=== PATIENT | male | born 1985 | race African-American/Black ===

== ENCOUNTER 2016-12-21 18:24 | Inpatient (IN) | payer SELFPAY ==
[~2016-12-21] VITALS: Ht 175.3 cm; Wt 256.1 kg
[~2016-12-21 18:24] MED LIST: CUBICIN500 MG/10 IV; Norvasc PO; Percocet 5/325,Endoc PO; Rocephin IV; Zestril,Prinivil PO; oxyCODONE PO
[2016-12-21 21:03] LABS: CHLORIDE 99 mEq/L (99-109); POTASSIUM 4.7 mEq/L (3.7-5.4); SODIUM 136 mEq/L (136-147)
[2016-12-21 21:04] LABS: GLUCOSE 125 mg/dL (70-99)
[2016-12-21 21:06] LABS: ANION GAP 11 MEQ/L (2-14)
[2016-12-21 21:08] LABS: GFR ESTIMATE (CALCULATED) > 59 mL/min/
[2016-12-21 21:09] LABS: UREA NITROGEN (BUN) 21 mg/dL (9-23)
[2016-12-21 21:11] LABS: MEAN PLAT.VOLUME 12.4 uM^3 (9.0-12.4); PLATELET COUNT 172 K/uL (156-360)
[2016-12-21 21:49] LABS: TOTAL BILIRUBIN 0.9 mg/dL (0.0-1.0)
[2016-12-21 21:50] LABS: ALKALINE PHOSPHATASE 59 IU/L (3-129)
[2016-12-21 21:52] LABS: DIRECT BILIRUBIN 0.5 mg/dL (0.0-0.3)
[2016-12-21 22:35] LABS: HEMATOCRIT 41.6 % (38.0-50.0); HEMATOLOGY COMMENT 1 SN; MCH 28.3 PG (29.0-34.0); MCHC 30.5 G/DL (30.0-36.0); MCV 92.9 FL (86-99); PLAT.SUFFICIENCY ADEQUATE; RBC DIS.WIDTH-SD 47.8 % (39-53); RED BLOOD COUNT 4.48 M/uL (4.00-5.50); WHITE BLOOD COUNT 11.6 K/uL (4.1-10.2)
[2016-12-21 23:21] LABS: LIPASE 3 U/L (1.0-51.0); SAMPLE HEMOLYSIS CHECK 0; SAMPLE ICTERIC CHECK 0; SAMPLE LIPEMIA CHECK 0
[2016-12-22] VITALS (9 sets, daily range): BP systolic 90–135; BP diastolic 56–93
[2016-12-22 00:24] LABS: INTER. NORMALIZED RATIO 1.5; PROTHROMBIN TIME 15.2 (9.2-11.2); PTT 34.5 (25-32)
[2016-12-22 03:01] LABS: CARBOXY HGB 2.5 % (0-5); METHEMOGLOBIN 1.3 % (0-1.5); PCO2 80 mm Hg (35-45); PO2 85 mm Hg (80-100); pH 7.21 (7.35-7.45)
[2016-12-22 03:02] LABS: COMMENTS - BLOOD GASES A+C+; DEVICE NC; O2 FLOW 3 L/MIN; SITE RR; TOTAL RESP RATE 30 resp/min
[2016-12-22 07:21] LABS: HEMATOCRIT 39.1 % (38.0-50.0); MCH 28.4 PG (29.0-34.0); MCHC 29.7 G/DL (30.0-36.0); MCV 95.8 FL (86-99); MEAN PLAT.VOLUME 12.7 uM^3 (9.0-12.4); PLATELET COUNT 162 K/uL (156-360); RBC DIS.WIDTH-CV 14.4 % (11.8-14.6); RBC DIS.WIDTH-SD 50.4 % (39-53); RED BLOOD COUNT 4.08 M/uL (4.00-5.50); WHITE BLOOD COUNT 14.2 K/uL (4.1-10.2)
[2016-12-22 09:26] LABS: AMPHETAMINES QUANT VALUE 0 NG/ML; BARBITUATES QUANT VALUE 0 NG/ML; BENZODIAZEPINES QUANT VALUE 0 NG/ML; BENZODIAZEPINES, URINE SCREEN Negative (200 ng/mL); MARIJUANA QUANT VALUE 0 NG/ML; PHENCYCLIDINE QUANT VALUE 0 NG/ML
[2016-12-22 10:40] LABS: ADD MIUA? YES; BILIRUBIN NEGATIVE; BLOOD NEGATIVE; COLOR YELLOW ((YELLOW)); GLUCOSE (STRIP) NEGATIVE; KETONES NEGATIVE; LEUKOCYTES NEGATIVE; NITRITE NEGATIVE; PROTEIN (STRIP) NEGATIVE; SPECIFIC GRAVITY 1.016 (1.000-1.030)
[2016-12-22 10:49] LABS: BACTERIA RARE /HPF; EPITHELIAL CELLS RARE /HPF; MUCUS TRACE /LPF; RED BLOOD CELLS 0-5 /HPF (0-5); UCUL ADDED? NO; WHITE BLOOD CELLS 0-5 /HPF (0-5)
[2016-12-22 11:14] LABS: METH RESISTANT S AUREUS PCR NEGATIVE (NEGATIVE)
[2016-12-22 11:15] LABS: PROBE CHECK PASS; SPECIMEN PROCESSING CONTROL PASS
[2016-12-22 16:01] LABS: ANION GAP 5 MEQ/L (2-14); CHLORIDE 101 MEQ/L (99-109); GFR ESTIMATE (CALCULATED) 50 mL/min/; GLUCOSE 116 mg/dL (70-99); POTASSIUM 4.4 MEQ/L (3.7-5.4); SAMPLE HEMOLYSIS CHECK 0; SAMPLE ICTERIC CHECK 0; SAMPLE LIPEMIA CHECK 0; SODIUM 137 MEQ/L (136-147); UREA NITROGEN (BUN) 28 mg/dL (9-23)
[2016-12-22 18:09] LABS: BASE EXCESS 4.1 mEq/L (-3 to +3); BICARBONATE 34.4 mEq/L (22-26); CARBOXY HGB 2.5 % (0-5); METHEMOGLOBIN 1.6 % (0-1.5)
[2016-12-22 18:10] LABS: COMMENTS - BLOOD GASES C+A-N/A; CONTINUOUS POS AIRWAY PRESSURE 10 cm H2O; DEVICE BIPAP; MODE BIPAP; O2 FLOW 10 L/MIN; PCO2 86 mm Hg (35-45); PO2 65 mm Hg (80-100); PRES. SUPPORT 16 CM/H2O; SITE LR; pH 7.21 (7.35-7.45)
[2016-12-22 19:01] LABS: TROP-I INTERPRETATION NEGATIVE; TROPONIN-I 0.11 ng/mL (0.0-0.30)
[2016-12-23] VITALS (12 sets, daily range): BP systolic 87–144; BP diastolic 44–87
[2016-12-23 06:18] LABS: ANION GAP 6 MEQ/L (2-14); CHLORIDE 99 MEQ/L (99-109); GFR ESTIMATE (CALCULATED) 40 mL/min/; GLUCOSE 102 mg/dL (70-99); POTASSIUM 4.8 MEQ/L (3.7-5.4); SAMPLE HEMOLYSIS CHECK 0; SAMPLE ICTERIC CHECK 0; SAMPLE LIPEMIA CHECK 0; SODIUM 136 MEQ/L (136-147); UREA NITROGEN (BUN) 33 mg/dL (9-23)
[2016-12-23 07:21] LABS: HEMATOCRIT 36.1 % (38.0-50.0); MCH 28.9 PG (29.0-34.0); MCHC 29.9 G/DL (30.0-36.0); MCV 96.5 FL (86-99); PLATELET COUNT 153 K/uL (156-360); RBC DIS.WIDTH-CV 14.6 % (11.8-14.6); RBC DIS.WIDTH-SD 52.1 % (39-53); RED BLOOD COUNT 3.74 M/uL (4.00-5.50); WHITE BLOOD COUNT 14.2 K/uL (4.1-10.2)
[2016-12-23 07:25] LABS: ABS NEUTROPHIL COUNT 12.8; ANISOCYTOSIS 1+; BAND NEUTROPHILS 26.3 % (0-8.0); EOSINOPHIL ABS CT 0; GIANT PLATELETS 1+; INSTRUMENT ABS NEUTROPHIL CT 12.3 K/uL; LYMPHOCYTES 2.6 % (15.0-45.0); MACROCYTES 1+; METAMYELOCYTES 1.8 %; PLAT.SUFFICIENCY ADEQUATE; PLATELET CLUMPS PRESENT - PLATELET COUNT APPEARS ADQ.; SPHEROCYTES 1+
[2016-12-23 10:51] LABS: BASE EXCESS 3.7 mEq/L (-3 to +3); BICARBONATE 33.1 mEq/L (22-26); CARBOXY HGB 2.1 % (0-5); METHEMOGLOBIN 1.7 % (0-1.5); PO2 54 mm Hg (80-100)
[2016-12-23 10:52] LABS: COMMENTS - BLOOD GASES A+C+; DEVICE BIPAP; O2 FLOW 10 L/MIN; PCO2 79 mm Hg (35-45); SITE RR; pH 7.23 (7.35-7.45)
[2016-12-23 11:57] LABS: BASE EXCESS 2.5 mEq/L (-3 to +3); BICARBONATE 31.1 mEq/L (22-26); CARBOXY HGB 1.9 % (0-5); METHEMOGLOBIN 1.6 % (0-1.5)
[2016-12-23 11:58] LABS: PCO2 71 mm Hg (35-45); PO2 80 mm Hg (80-100); pH 7.25 (7.35-7.45)
[2016-12-23 11:59] LABS: COMMENTS - BLOOD GASES NAC+; O2 FLOW 10 L/MIN
[2016-12-23 12:00] LABS: DEVICE BIPAP 18/10
[2016-12-23 18:10] LABS: BASE EXCESS 3.9 mEq/L (-3 to +3); BICARBONATE 32.2 mEq/L (22-26); CARBOXY HGB 2.3 % (0-5); METHEMOGLOBIN 1.5 % (0-1.5); PCO2 67 mm Hg (35-45); PO2 68 mm Hg (80-100)
[2016-12-23 18:11] LABS: COMMENTS - BLOOD GASES A+C+; DEVICE BIPAP; O2 FLOW 10 L/MIN; SITE RR; TOTAL RESP RATE 22 resp/min
[2016-12-23 18:13] LABS: pH 7.29 (7.35-7.45)
[2016-12-24] VITALS (9 sets, daily range): BP systolic 110–168; BP diastolic 84–114
[2016-12-24 04:44] LABS: HEMATOCRIT 37.2 % (38.0-50.0); MCH 28.3 PG (29.0-34.0); MCHC 29.8 G/DL (30.0-36.0); MCV 94.9 FL (86-99); MEAN PLAT.VOLUME 12.9 uM^3 (9.0-12.4); NRBC (%) 1.4 /100 WBC (0-0); PLATELET COUNT 184 K/uL (156-360); RBC DIS.WIDTH-CV 14.6 % (11.8-14.6); RBC DIS.WIDTH-SD 50.9 % (39-53); RED BLOOD COUNT 3.92 M/uL (4.00-5.50)
[2016-12-24 05:00] LABS: CHLORIDE 99 mEq/L (99-109); MAGNESIUM 2.1 mg/dL (1.3-2.7); POTASSIUM 5.4 mEq/L (3.7-5.4); SODIUM 134 mEq/L (136-147)
[2016-12-24 05:01] LABS: GLUCOSE 150 mg/dL (70-99)
[2016-12-24 05:03] LABS: ANION GAP 9 MEQ/L (2-14)
[2016-12-24 05:05] LABS: GFR ESTIMATE (CALCULATED) 45 mL/min/
[2016-12-24 05:06] LABS: UREA NITROGEN (BUN) 44 mg/dL (9-23)
[2016-12-25 02:50] VITALS: BP 166/101
[2016-12-25 05:39] LABS: HEMATOCRIT 38.4 % (38.0-50.0); MCH 27.8 PG (29.0-34.0); MCHC 29.9 G/DL (30.0-36.0); MCV 92.8 FL (86-99); MEAN PLAT.VOLUME 12.7 uM^3 (9.0-12.4); NRBC (%) 2.5 /100 WBC (0-0); PLATELET COUNT 222 K/uL (156-360); RBC DIS.WIDTH-CV 14.2 % (11.8-14.6); RBC DIS.WIDTH-SD 48.2 % (39-53); RED BLOOD COUNT 4.14 M/uL (4.00-5.50); WHITE BLOOD COUNT 18.6 K/uL (4.1-10.2)
[2016-12-25 06:07] LABS: ANION GAP 12 MEQ/L (2-14); CHLORIDE 99 MEQ/L (99-109); GFR ESTIMATE (CALCULATED) > 59 mL/min/; GLUCOSE 206 mg/dL (70-99); POTASSIUM 5.1 MEQ/L (3.7-5.4); SAMPLE HEMOLYSIS CHECK 0; SAMPLE ICTERIC CHECK 0; SAMPLE LIPEMIA CHECK 0; SODIUM 137 MEQ/L (136-147); UREA NITROGEN (BUN) 52 mg/dL (9-23)
[2016-12-25 07:15] VITALS: BP 159/93
[2016-12-25 11:27] VITALS: BP 138/95; BP 38/95
[2016-12-25 16:09] VITALS: BP 159/91
[2016-12-25 20:30] VITALS: BP 177/108
[2016-12-26] VITALS (9 sets, daily range): BP systolic 163–194; BP diastolic 90–130
[2016-12-26 06:09] LABS: ANION GAP 7 MEQ/L (2-14); CHLORIDE 99 MEQ/L (99-109); GFR ESTIMATE (CALCULATED) > 59 mL/min/; GLUCOSE 231 mg/dL (70-99); POTASSIUM 5.5 MEQ/L (3.7-5.4); SAMPLE HEMOLYSIS CHECK 0; SAMPLE ICTERIC CHECK 0; SAMPLE LIPEMIA CHECK 0; SODIUM 139 MEQ/L (136-147); UREA NITROGEN (BUN) 47 mg/dL (9-23)
[2016-12-27] VITALS (9 sets, daily range): BP systolic 168–191; BP diastolic 108–129
[2016-12-27 06:54] LABS: ANION GAP 8 MEQ/L (2-14); CHLORIDE 98 MEQ/L (99-109); GFR ESTIMATE (CALCULATED) > 59 mL/min/; GLUCOSE 188 mg/dL (70-99); POTASSIUM 5.1 MEQ/L (3.7-5.4); SAMPLE HEMOLYSIS CHECK 0; SAMPLE ICTERIC CHECK 0; SAMPLE LIPEMIA CHECK 0; SODIUM 142 MEQ/L (136-147); UREA NITROGEN (BUN) 41 mg/dL (9-23)
[2016-12-27 07:29] LABS: HEMATOCRIT 40.9 % (38.0-50.0); MCH 28.7 PG (29.0-34.0); MCHC 31.1 G/DL (30.0-36.0); MCV 92.5 FL (86-99); MEAN PLAT.VOLUME 12.4 uM^3 (9.0-12.4); NRBC (%) 0.5 /100 WBC (0-0); RBC DIS.WIDTH-CV 14.2 % (11.8-14.6); RBC DIS.WIDTH-SD 48.1 % (39-53); RED BLOOD COUNT 4.42 M/uL (4.00-5.50); WHITE BLOOD COUNT 13.5 K/uL (4.1-10.2)
[2016-12-27 07:30] LABS: PLATELET COUNT 328 K/uL (156-360)
[2016-12-27 07:37] LABS: ABS NEUTROPHIL COUNT 10.2; ANISOCYTOSIS 2+; EOSINOPHIL ABS CT 0; INSTRUMENT ABS NEUTROPHIL CT 9.4 K/uL; LYMPHOCYTES 9.5 % (15.0-45.0); MACROCYTES 2+; METAMYELOCYTES 2.6 %; NUCLEATED RBC'S 0.9; PLAT.SUFFICIENCY INCREASED; SEG.NEUTROPHILS 72.2 % (46.0-76.0); TARGET CELLS 1+
[2016-12-27 07:52] LABS: BAND NEUTROPHILS 3.5 % (0-8.0)
[2016-12-28 04:20] VITALS: BP 179/114
[2016-12-28 05:04] LABS: HEMATOCRIT 43.8 % (38.0-50.0); MCH 27.4 PG (29.0-34.0); MCHC 30.8 G/DL (30.0-36.0); MCV 88.8 FL (86-99); MEAN PLAT.VOLUME 11.8 uM^3 (9.0-12.4); NRBC (%) 0.3 /100 WBC (0-0); PLATELET COUNT 376 K/uL (156-360); RBC DIS.WIDTH-SD 44.9 % (39-53); RED BLOOD COUNT 4.93 M/uL (4.00-5.50); WHITE BLOOD COUNT 14.9 K/uL (4.1-10.2)
[2016-12-28 05:55] LABS: ANION GAP 9 MEQ/L (2-14); CHLORIDE 94 MEQ/L (99-109); GFR ESTIMATE (CALCULATED) > 59 mL/min/; GLUCOSE 131 mg/dL (70-99); SAMPLE HEMOLYSIS CHECK 0; SAMPLE ICTERIC CHECK 0; SAMPLE LIPEMIA CHECK 0; SODIUM 139 MEQ/L (136-147); UREA NITROGEN (BUN) 33 mg/dL (9-23)
[2016-12-28 07:08] LABS: ABS NEUTROPHIL COUNT 11.3; ANISOCYTOSIS 1+; BAND NEUTROPHILS 0.9 % (0-8.0); EOSINOPHIL ABS CT 0.1; EOSINOPHILS 0.9 % (0-5.0); INSTRUMENT ABS NEUTROPHIL CT 9.5 K/uL; LYMPHOCYTES 13.4 % (15.0-45.0); MACROCYTES 1+; MYELOCYTES 2.7 %; PLAT.SUFFICIENCY ADEQUATE
[2016-12-28 07:38] VITALS: BP 173/106
[2016-12-28 10:30] VITALS: BP 134/85
[2016-12-28 12:30] VITALS: BP 152/92
[2016-12-28] MEDS ORDERED: PREDNISONE20 MG PO (13:42)
[2016-12-28] MEDS ORDERED: APRESOLINE50 MG PO (13:42)
[2016-12-28] MEDS ORDERED: FLORASTOR250 MG PO (13:42)
[2016-12-28] MEDS ORDERED: AMOX TR-K CLV1 EAC4 PO (13:42)
[2016-12-28] MEDS ORDERED: AMLODIPINE BESY10 MG PO (13:42)
[2016-12-28] MEDS ORDERED: FUROSEMIDE80 MG PO (13:42)
[2016-12-28] MEDS ORDERED: CARVEDILOL25 MG PO (13:42)
[2016-12-28] MEDS ORDERED: PROAIR RESPICL90 MCG IH (13:42)
[2016-12-28] MEDS ORDERED: HYDROCHLOROTHIA25 MG PO (13:42)
== END 2016-12-28 16:58 | disposition home or self-care (01) | DRG 871 ==
LOC: EME 18:24 → 4WEST 23:58 → EDOF 23:58 → 4WEST 12-22 05:34 → 4EAST 12-24 22:16
PROVIDERS: Hospitalist; Internal Medicine; Internal Medicine Pulmonary Disease; Physician Assistant; Physician Assistant Medical
PROC: 5A09357 Assistance with Respiratory Ventilation, Less than 24 Consecutive Hours, Continuous Positive Airway Pressure (ICD-10-PCS; principal; 2016-12-22)
DX: A40.0 Sepsis due to streptococcus, group A (principal); R65.20 Severe sepsis without septic shock; L03.115 Cellulitis of right lower limb; L03.116 Cellulitis of left lower limb; N17.9 Acute kidney failure, unspecified; J96.21 Acute and chronic respiratory failure with hypoxia; J96.22 Acute and chronic respiratory failure with hypercapnia; E87.2 Acidosis; E87.5 Hyperkalemia; I27.2 Other secondary pulmonary hypertension; E66.2 Morbid (severe) obesity with alveolar hypoventilation; Z68.45 Body mass index [BMI] 70 or greater, adult; I83.009 Varicose veins of unspecified lower extremity with ulcer of unspecified site; L97.929 Non-pressure chronic ulcer of unspecified part of left lower leg with unspecified severity; L97.919 Non-pressure chronic ulcer of unspecified part of right lower leg with unspecified severity; I87.2 Venous insufficiency (chronic) (peripheral); I87.8 Other specified disorders of veins; I89.0 Lymphedema, not elsewhere classified; I13.0 Hypertensive heart and chronic kidney disease with heart failure and stage 1 through stage 4 chronic kidney disease, or unspecified chronic kidney disease; I50.23 Acute on chronic systolic (congestive) heart failure; E11.22 Type 2 diabetes mellitus with diabetic chronic kidney disease; N18.4 Chronic kidney disease, stage 4 (severe); K52.1 Toxic gastroenteritis and colitis; T36.95XA Adverse effect of unspecified systemic antibiotic, initial encounter; Z91.19 Patient's noncompliance with other medical treatment and regimen; I42.9 Cardiomyopathy, unspecified; J44.9 Chronic obstructive pulmonary disease, unspecified; F10.10 Alcohol abuse, uncomplicated; M25.562 Pain in left knee; F17.210 Nicotine dependence, cigarettes, uncomplicated; G43.909 Migraine, unspecified, not intractable, without status migrainosus; R31.9 Hematuria, unspecified
CPT/HCPCS: 36600; 71010; 76770; 78582; 80048; 80069; 80076; 80202; 80306 90; 81003; 82803; 83605; 83690; 83735; 83880; 84484; 85025; 85027; 85610; 85730; 87040; 87070; 87075; 87077; 87186; 87205; 87641; 87801; 93005; 93306; 93970; 94002; 94010; 94640; 94640 76; 94660; 94799; 99202; 99281; 99285; A9540; A9567; J0295; J0360; J1644; J1940; J2270; J2310; J2405; J2543; J2920; J2930; J3370; J7030; J7040; J7050; J7512